=== PATIENT | male | born 1985 | race Caucasian/White ===

== ENCOUNTER 2017-05-10 21:54 | Emergency (ER) | payer BC ==
[2017-05-10 22:27] LABS: BASOPHILS 0.3 % (0-2); HEMATOCRIT 40.4 % (42.0-54.0); HEMOGLOBIN 14.3 g/dL (13.5-17.5); IMMATURE GRANULOCYTES 0.1 % (0-5); MCH 31.1 pg (26.0-34.0); MCHC 35.4 g/dL (31.0-37.0); MCV 87.8 fL (80.0-100.0); MONOCYTES 8.5 % (2-11); NEUTROPHILS 64.1 % (40-80); PLATELET COUNT 191 10x3/uL (130-400); WBC 6.9 10x3/uL (4.8-10.8)
[2017-05-10 22:33] LABS: APPEARANCE CLEAR (CLEAR); BILIRUBIN NEGATIVE (NEGATIVE); COLOR YELLOW (YELLOW); GLUCOSE NEGATIVE (NEGATIVE); KETONE SMALL mg/dL (NEGATIVE); NITRITE NEGATIVE (NEGATIVE); PROTEIN NEGATIVE (NEGATIVE); SPECIFIC GRAVITY 1.005 (1.005-1.020); UROBILINOGEN NORMAL (NORMAL)
[2017-05-10 22:38] LABS: ALBUMIN 4.2 g/dL (3.4-5.0); ALKALINE PHOSPHATASE 47 U/L (46-116); ALT (SGPT) 25 U/L (10-68); APTT 26.2 SECONDS (22.8-39.4); BILIRUBIN - TOTAL 0.77 mg/dL (0.2-1.3); CALC OSMOLALITY 276 mosm/kg (275-300); CHLORIDE - SERUM 102 mmol/L (98-107); CREATININE - SERUM 1.1 mg/dL (0.6-1.3); GLUCOSE 91 mg/dL (74-106); INR 0.99 (0.85-1.17); POTASSIUM - SERUM 3.2 mmol/L (3.5-5.1); PROTEIN - SERUM 7.7 g/dL (6.4-8.2); PROTIME 12.7 SECONDS (11.6-15.0); SODIUM 137 mmol/L (136-145); UREA NITROGEN 20 mg/dL (7-18); eGFR NON AFRICAN AMERICAN 84 mL/min (90-120)
[2017-05-10 22:40] LABS: D-DIMER-QUANTITATIVE 0.39 ug/mLFEU (0.20-0.54)
[2017-05-10 22:48] LABS: CKMB 0.4 U/L (0.0-3.6); CREATINE KINASE 93 UL (21-232)
[2017-05-10 22:49] LABS: TROPONIN-I < 0.017 ng/mL (0.000-0.060)
[2017-05-10 22:51] LABS: UDS - AMPHET NEGATIVE QUAL (NEGATIVE); UDS - BARB NEGATIVE QUAL (NEGATIVE); UDS - BENZO NEGATIVE QUAL (NEGATIVE); UDS - COCAINE NEGATIVE QUAL (NEGATIVE); UDS - OPIATE NEGATIVE QUAL (NEGATIVE); UDS - PCP NEGATIVE QUAL (NEGATIVE); UDS - THC NEGATIVE QUAL (NEGATIVE)
== END 2017-05-11 00:52 | disposition home or self-care (01) ==
LOC: D.ER 21:54
PROVIDERS: Family Medicine
DX: R20.2 Paresthesia of skin (principal); R42 Dizziness and giddiness

== ENCOUNTER 2018-03-31 09:29 | Day surgery (SDC) | payer MEDICAID ==
[~2018-03-31] VITALS: Ht 170.2 cm; Wt 72.6 kg
[~2018-03-31 09:29] MED LIST: CARAFATE1 G; EFFEXOR XR75 MG PO; PEPCID AC20 MG; VISTARIL25 MG; VITAMIN D250000 UNIT
[2018-03-31 09:52] VITALS: BP 111/72; Ht 170.2 cm; Wt 72.6 kg
[2018-03-31] MEDS ORDERED: FLOMAX0.4 MG PO (14:24)
[2018-03-31] MEDS ORDERED: FUROSEMIDE20 MG PO (14:24)
[2018-03-31] MEDS ORDERED: HYDROCODON-ACE1 EAC7 PO (14:24)
--- NOTE | 2018-03-31 15:35 | NUR ---
REC'D FROM RR. FAMILY AT BEDSIDE. ESTHER STRIPS CDI TO ABD. APPLE JUICE AND ICE WATER BROUGHT TO PT. FAMILY RELATES HE IS GOING TO NEED A WORK AND SCHOOL EXCUSE.
--- NOTE | 2018-03-31 16:05 | NUR ---
YUMIKO [place] BROUGHT TO PT. FAMILY AT BEDSIDE.
--- NOTE | 2018-03-31 16:30 | NUR ---
SPOKE WITH DR ALBARRAN REGARDING WORK/SCHOOL EXCUSE.
--- NOTE | 2018-03-31 16:35 | NUR ---
TOLERATED DIET. STILL NO URGE TO URINATE.
--- NOTE | 2018-03-31 17:30 | NUR ---
AMBULATED TO BATHROOM AND VOIDED WITHOUT DIFFICULTY. IV DC'D WITH CATHETER INTACT.
--- NOTE | 2018-03-31 17:45 | NUR ---
WRITTEN AND VERBAL DC INST GIVEN TO PT. VERBALIZED UNDERSTANDING.
--- NOTE | 2018-03-31 18:05 | NUR ---
DC'D HOME WITH FAMILY VIA PRIVATE VEHICLE. TAKEN TO VEHICLE VIA WC. STABLE AT TIME OF DC.
== END 2018-03-31 18:05 | disposition home or self-care (01) ==
LOC: D.OPS 09:29 → D.PAN 12:00 → D.OPS 12:00
DX: K40.20 Bilateral inguinal hernia, without obstruction or gangrene, not specified as recurrent (principal); Z01.812 Encounter for preprocedural laboratory examination

== ENCOUNTER 2020-09-01 20:45 | Emergency (ER) | payer BC ==
[~2020-09-01] VITALS: Ht 170.2 cm; Wt 63.5 kg
[~2020-09-01 20:45] MED LIST changes: +FLOMAX0.4 MG PO; +FUROSEMIDE20 MG PO; +HYDROCODON-ACE1 EAC7 PO
[2020-09-01 21:10] VITALS: Ht 170.2 cm; Wt 63.5 kg
[2020-09-01] MEDS ORDERED: [UNRECOGNIZED DRUG - OTHER] (21:12)
[2020-09-01 21:58] LABS: BILIRUBIN NEGATIVE (NEGATIVE); KETONE NEGATIVE mg/dL (< 1+); NITRITE NEGATIVE (NEGATIVE); UROBILINOGEN NORMAL mg/dL (< 2); WHITE CELLS - URINE <1 HPF (0-1)
[2020-09-01 22:00] LABS: BASOPHILS 0.8 % (0-2); HEMATOCRIT 39.3 % (42.0-54.0); HEMOGLOBIN 13.5 g/dL (13.5-17.5); MCH 30.3 pg (26.0-34.0); MCHC 34.5 g/dL (31.0-37.0); MEAN PLATELET VOLUME 6.7 fL (7.4-10.4); MONOCYTES 8.1 % (2-11); NEUTROPHILS 51.1 % (40-80); PLATELET COUNT 220 10x3/uL (130-400); RBC 4.47 10x6/uL (4.20-6.10); RDW 12.8 % (11.5-14.5); WBC 5.4 10x3/uL (4.8-10.8)
[2020-09-01 22:03] LABS: CALC OSMOLALITY 272 mosm/kg (275-300); CALCIUM 9.2 mg/dL (8.5-10.1); CARBON DIOXIDE 26.4 mmol/L (21.0-32.0); CHLORIDE - SERUM 103 mmol/L (98-107); CREATININE - SERUM 0.9 mg/dL (0.6-1.3); GLUCOSE 85 mg/dL (74-106); POTASSIUM - SERUM 3.8 mmol/L (3.5-5.1); SODIUM 137 mmol/L (136-145); UREA NITROGEN 12 mg/dL (7-18); eGFR NON AFRICAN AMERICAN > 90 mL/min (90-120)
[2020-09-01 22:14] LABS: ALBUMIN 4.3 g/dL (3.4-5.0); ALKALINE PHOSPHATASE 48 U/L (30-120); ALT (SGPT) 36 U/L (10-68); BILIRUBIN - TOTAL 0.42 mg/dL (0.2-1.3); PROTEIN - SERUM 7.2 g/dL (6.4-8.2)
[2020-09-02 04:36] LABS: UDS - AMPHET NEGATIVE QUAL (NEGATIVE); UDS - BARB NEGATIVE QUAL (NEGATIVE); UDS - BENZO NEGATIVE QUAL (NEGATIVE); UDS - COCAINE NEGATIVE QUAL (NEGATIVE); UDS - OPIATE NEGATIVE QUAL (NEGATIVE); UDS - PCP NEGATIVE QUAL (NEGATIVE); UDS - THC NEGATIVE QUAL (NEGATIVE)
[2020-09-02] MEDS ORDERED: VIBRAMYCIN 100100 MG PO (06:42)
[2020-09-02 06:44] VITALS: BP 107/64
[2020-09-04 08:13] LABS: RAPID PLASMA REAGIN Non Reactive (Non Reactive)
== END 2020-09-02 06:53 | disposition home or self-care (01) ==
LOC: D.ER 20:45
PROVIDERS: Emergency Medicine
DX: R42 Dizziness and giddiness (principal); A77.0 Spotted fever due to Rickettsia rickettsii